=== PATIENT | male | born 1975 | race Caucasian/White ===

== ENCOUNTER 2016-08-15 01:26 | Emergency (ER) | payer SELFPAY ==
[~2016-08-15] VITALS: Ht 185.4 cm; Wt 81.6 kg
[2016-08-15 01:38] VITALS: BP 103/85
[2016-08-15] MEDS ORDERED: cefTRIAXone SOD 1,000 MG VL IM ONE (02:15)
== END 2016-08-15 02:31 | disposition home or self-care (01) ==
LOC: ER 01:29
DX: T54.91XA Toxic effect of unspecified corrosive substance, accidental (unintentional), initial encounter (principal); J02.9 Acute pharyngitis, unspecified; Y92.9 Unspecified place or not applicable
CPT/HCPCS: 96372; 99283; J0696

== ENCOUNTER → 2016-08-17 | Emergency (ER) | payer SELFPAY ==
[~2016-08-17] VITALS: Ht 185.4 cm; Wt 86.2 kg
[~2016-08-17] MED LIST: OLANZapine 5 MG TAB PO ONE; QUEtiapine FUMARATE 100 MG TAB ONE; QUEtiapine FUMARATE 100 MG TAB PO SCH; SODIUM CHLORIDE 0.9% 1,000 ML IVB ONE; clonazePAM 0.5 MG TAB ONE
[2016-08-17 07:23] LABS: Urine RBC None Seen /hpf (0 - 3)
[2016-08-17 07:49] LABS: Urine Bilirubin Negative (Negative); Urine Blood Negative /uL (Negative); Urine Color Yellow (Yellow); Urine Glucose Normal (Normal); Urine Ketone Negative (Negative); Urine Nitrite Negative (Negative); Urine Squamous Epithelial Cell FEW /hpf (<5); Urine Urobilinogen Normal (Negative); Urine pH 5.5 (5.0-8.0)
[2016-08-17 07:58] LABS: Basophils # (auto) 0 uL; Basophils % (auto) 0.6 % (0.0-2.0); Eosinophils # (auto) 0.3 uL; Hematocrit 41.1 % (41.0-53.0); Hemoglobin 13.8 g/dL (13.5-17.5); Lymphocytes # (auto) 2.7 uL; Lymphocytes % (auto) 40.3 % (10.0-50.0); Mean Corpuscular Hemoglobin 29.4 pg (28.0-32.0); Mean Corpuscular Hgb Conc. 33.5 g/dL (32.0-36.0); Mean Corpuscular Volume 87.7 fL (80.0-100.0); Mean Platelet Volume 8.3 fL (7.4-10.4); Monocytes # (auto) 0.3 uL; Monocytes % (auto) 4.8 % (0.0-12.0); Neutrophils # (auto) 3.3 uL; Neutrophils % (auto) 49.3 % (37.0-80.0); Platelet Count (auto) 212 10^3/uL (140-450); White Blood Cell 6.6 10^3/uL (4.4-10.8)
[2016-08-17 08:08] LABS: Albumin 3.1 g/dL (3.4-5.0); BUN/Creatinine Ratio 6.1; Calcium 7.7 mg/dL (8.5-10.1); Magnesium 2.2 mg/dL (1.6-2.6); Potassium 3.7 mmol/L (3.5-5.1)
[2016-08-17 08:13] LABS: Bilirubin, Total 0.3 mg/dL (0.2-1.0); Total Protein 6.7 g/dL (6.4-8.2)
[2016-08-17 08:17] LABS: Acetaminophen < 2.0 ug/mL (10-30)
[2016-08-17] MEDS: clonazePAM 0.5 MG TAB PO SCH (22:45)
[2016-08-19] MEDS: clonazePAM 0.5 MG TAB PO SCH ×3 (01:36→22:36)
[2016-08-19 19:42] VITALS: BP 122/62
[2016-08-20] MEDS: clonazePAM 0.5 MG TAB PO SCH (07:26)
== END | disposition home or self-care (01) ==
LOC: ER 02:35
DX: F32.9 Major depressive disorder, single episode, unspecified (principal); F12.10 Cannabis abuse, uncomplicated; E44.1 Mild protein-calorie malnutrition; R74.8 Abnormal levels of other serum enzymes; Z68.25 Body mass index [BMI] 25.0-25.9, adult
CPT/HCPCS: 36415; 80053; 80307; 80320; 80329; 81001; 83735; 85025; 96360; 99285; J7030